=== PATIENT | female | born 1975 | race Caucasian/White ===

== ENCOUNTER 2016-12-23 11:17 | Emergency (ER) | payer MEDICAID ==
[~2016-12-23] VITALS: Ht 160 cm; Wt 83.0 kg
[~2016-12-23 11:17] MED LIST: BACT800T5 PO; HYDR-3533 PO; HYDR-3534 PO
[2016-12-23 11:21] VITALS: BP 147/81; PULSE 112; RESP 16; TEMP 98.7; O2SAT 98
[2016-12-23] MEDS ORDERED: MOBI7.5T PO (11:33)
--- NOTE | 2016-12-23 12:00 | PD ---
HPI Chief Complaint: Flank/Kidney Pain Time Seen by Provider: 11:29 Travel History International Travel<30 days: No Contact w/Intl Traveler<30days: No Traveled to known affect area: No History of Present Illness HPI The patient was seen and examined in the presence of the nurse. This patient complains of left flank pain. Duration 3 days. Severity is moderate. No injury or fever or urinary complaints. She reports history of kidney stones and thinks that may be the problem. She says that she visualized a kidney stone in the toilet 3 days ago that she passed. No alleviating factors. PFSH Past Medical History Hx Anticoagulant Therapy: No Asthma: Yes Anxiety: Yes Cancer: No Cardiovascular Problems: No Chemotherapy: No Cerebrovascular Accident: No Diabetes: No Diminished Hearing: No Endocrine: No Genitourinary: Yes (FREQUENT UTI KIDNEY STONES) Immune Disorder: No Implanted Vascular Access Dvce: No Kidney Stones: Yes Musculoskeletal: Yes (CHRONIC BACK PAIN) Psychiatric: No Reproductive: Yes (FIBROIDS, OVARIAN CYSTS) Respiratory: No Immunizations Current: Yes Ulcer: Yes PNEUMOCCOCAL Vaccine (Year): 2009 ?: Not LMP: 12/10/16 : 13 Para: 5 : 5 Ovarian Cysts: Yes Dilation and Curettage (D&C): Yes Tubal Ligation: Yes Past Surgical History Genitourinary Surgery: No Gynecologic Surgery: Yes (TUBAL LIGATION ABLATION) Hysterectomy: No Other Surgery: Yes (Bilateral tubal ligation) Social History Alcohol Use: No Tobacco Use: Yes (1/2PPD) Substance Use: No Allergies-Medications (Allergen,Severity, Reaction): Coded Allergies: Ciprofloxacin (Verified Allergy, Severe, ONLY IV CIPRO CAUSES HIVES, ) Codeine (Verified Allergy, Severe, swelling, 12/23/16) pt states does not have a allergy to this medication 12/05/15 Keflex (Verified Allergy, Severe, vomiting, 12/23/16) Penicillin (Verified Allergy, Severe, swelling, 12/23/16) Reported Meds & Prescriptions Reported Meds & Active Scripts Active Reported Mobic (Meloxicam) 7.5 Mg Tab Unknown Dose PO DAILY Review of Systems General / Constitutional: No: Fever Eyes: No: Visual changes HENT: No: Headaches Cardiovascular: No: Chest Pain or Discomfort Respiratory: No: Shortness of Breath Gastrointestinal: No: Abdominal Pain Genitourinary: Positive: Flank Pain, No: Dysuria Musculoskeletal: Positive: Pain Skin: No Rash Neurologic: No: Weakness Psychiatric: No: Depression Endocrine: No: Polydipsia Hematologic/Lymphatic: No: Easy Bruising Physical Exam Narrative GENERAL: Well-nourished, well-developed patient with left low back pain. SKIN: Focused skin assessment reveals no rash and nodules. Skin is Warm and dry. HEAD: Atraumatic. Normocephalic. EYES: Pupils equal and round. No scleral icterus. No injection or drainage. ENT: No nasal bleeding or discharge. Mucous membranes pink and moist. NECK: Trachea midline. No JVD. CARDIOVASCULAR: Regular rate and rhythm. No murmur appreciated. RESPIRATORY: No accessory muscle use. Clear to auscultation. Breath sounds equal bilaterally. GASTROINTESTINAL: Abdomen soft, non-tender, nondistended. Hepatic and splenic margins not palpable. MUSCULOSKELETAL: No obvious deformities. No clubbing. No cyanosis. No edema. No midline tenderness. There is some left lumbar area tenderness. NEUROLOGICAL: Awake and alert. No obvious cranial nerve deficits. Motor grossly within normal limits. Normal speech. PSYCHIATRIC: Appropriate mood and affect; insight and judgment normal. Data Data Last Documented VS Vital Signs Date Time Temp Pulse Resp B/P Pulse Ox O2 Delivery O2 Flow Rate FiO2 12/23/16 11:21 98.7 112 16 147/[address] Abd/Pel W/O Iv Contrast (12/23/16 ) Urinalysis - C+S If Indicated (12/23/16 11:48) Urine Culture (12/23/16 11:45) Labs Laboratory Tests Test 12/23/16 11:45 Urine Collection Type CLEAN CATCH Urine Color YELLOW Urine Turbidity SLIGHTY CLOUDY Urine pH 5.5 Urine Specific [place] 1.017 Urine Protein TRACE mg/dL Urine Glucose (UA) NEG mg/dL Urine Ketones NEG mg/dL Urine Occult Blood MOD Urine Nitrite POS Urine Bilirubin NEG Urine Leukocyte Esterase LARGE Urine WBC 100-200 /hpf Urine WBC Clumps FEW Urine Squamous Epithelial > 8 /hpf Cells Urine Bacteria MANY /hpf Urine White Blood Cell Casts 0-2 /lpf Microscopic Urinalysis Comment CULTURE INDICATED MDM Medical Decision Making Medical Screen Exam Complete: Yes Emergency Medical Condition: Yes Medical Record Reviewed: Yes Differential Diagnosis Kidney stone, sciatica, lumbar strain Narrative Course I have reviewed the patient's electronic medical record. Patient was here in 2012 and 2013 with flank pain and had CT scans on both occasions which I have reviewed. They both showed bilateral nonobstructing stones Urinalysis shows 100-200 white cells with other inflammatory markers consistent with infection CT of abdomen and pelvis shows bilateral nonobstructing renal stones which are not likely to be causing her symptoms I prescribed her week of antibiotics and something for pain Recommend primary care follow-up Diagnosis Primary Impression: Pyelonephritis Additional Instructions: The patient was advised to follow up with their physician and return if they worsen. The patient was warned about potential sedation for the medications they will receive on prescription. Med/Other Pt SpecificInfo: Prescription(s) given Scripts Tramadol 50 Mg Tab50 Mg PO Q6H PRN (PAIN) #15 TAB Ref 0 Prov:David Sifuentes MD 12/23/16 Sulfamethoxazole-Trimethoprim (Bactrim DS)800-160 Mg Tab1 Tab PO BID #14 TAB Ref 0 Prov:David Sifuentes MD 12/23/16 Disposition: 01 DISCHARGE HOME Condition: Stable David Sifuentes MD Dec 23, 2016 12:00
[2016-12-23 12:01] LABS: GLUCOSE,URINE NEG (NEG); KETONE, URINE NEG (NEG); PH, URINE 5.5 (5.0-8.5)
[2016-12-23 12:02] LABS: BLOOD, URINE MOD (NEG); NITRITE,URINE POS (NEG)
[2016-12-23 12:21] LABS: METHOD OF COLLECTION CLEAN CATCH; URINE COLOR YELLOW (YELLW/STRAW)
[2016-12-23 12:22] LABS: WHITE BLOOD CELL CAST, URINE 0-2 /lpf
[2016-12-23 12:23] LABS: BACTERIA, URINE MANY /hpf; SQUAMOUS EPITHELIAL CELL URINE > 8 /hpf (0-5); WBC, URINE 100-200 /hpf (0-5)
[2016-12-23 12:24] LABS: COMMENT (UR) CULTURE INDICATED; CULTURE IF INDICATED CULTURE INDICATED
--- NOTE | 2016-12-23 12:42 | RADHPO ---
EXAM DATE/TIME: 12/23/2016 12:22 [facility] COMPARISON: CT ABDOMEN & PELVIS W CONTRAST, October 30, 2015, 12:53. INDICATIONS : Left flank pain and an episode of gross hematuria. ORAL CONTRAST: No oral contrast ingested. RADIATION DOSE: 23.27 CTDIvol (mGy) MEDICAL HISTORY : Renal calculi. SURGICAL HISTORY : Tubal ligation. ENCOUNTER: Initial ACUITY: 2 days PAIN SCALE: 7/10 LOCATION: Left flank TECHNIQUE: Volumetric scanning of the abdomen and pelvis was performed. Using automated exposure control and ad justment of the mA and/or kV according to patient size, radiation dose was kept as low as reasonably achievable to obtain optimal diagnostic quality images. FINDINGS: Abdomen CT: There are multiple stones in both kidneys. In the right kidney there are 3 separate tiny stones the l argest measures 3 mm in size without hydronephrosis. In the left kidney there is an approximate 6 mm stone in the lower pole 2-3 mm stone in the upper pole. There are also 2 areas of milk of calcium dep osits in the left kidney within the cysts identified previously. There is no hydronephrosis or ureter al stone.The liver, spleen, pancreas, adrenals are unremarkable. There is no evidence for any appreci able pathological adenopathy, free fluid, or bowel obstruction. Pelvic CT: There is no evidence for mass, abscess formation, or any significant adenopathy within the pelvis. Th ere is a small almost 1 cm bone island in the anterior column acetabulum on the right with hypertroph ic changes of the symphysis pubi. IMPRESSION: Bilateral nonobstructing renal stones. Rhonda Thibodeaux MD on December 23, 2016 at 12:36 Board Certified Radiologist. This report was verified electronically.
[2016-12-23] MEDS ORDERED: TRAM50TA PO (13:00)
[2016-12-23] MEDS ORDERED: BACT800T5 PO (13:00)
== END 2016-12-23 13:11 | disposition home or self-care (01) ==
LOC: PHED 11:17
DX: N12 Tubulo-interstitial nephritis, not specified as acute or chronic (principal); D25.9 Leiomyoma of uterus, unspecified; F17.210 Nicotine dependence, cigarettes, uncomplicated; Z87.442 Personal history of urinary calculi
CPT/HCPCS: 74176; 81001; 87077; 87086; 87186

== ENCOUNTER 2017-12-15 10:11 | Emergency (ER) | payer MEDICAID ==
[~2017-12-15] VITALS: Ht 162.6 cm; Wt 77.9 kg
[~2017-12-15 10:11] MED LIST changes: -HYDR-3533 PO; -HYDR-3534 PO; +MOBI7.5T PO; +TRAM50TA PO
[2017-12-15 10:22] VITALS: BP 138/69; PULSE 86; RESP 16; TEMP 98.6; O2SAT 97
[2017-12-15] MEDS ORDERED: SODIUM CHLOR 0.9% 1000 ML INJ 1,000 ML IV SCH (11:34)
[2017-12-15] MEDS ORDERED: SODIUM CHLORIDE 0.9% FLUSH 10 ML FLUSH IV FLUSH PRN (11:45)
[2017-12-15 12:05] VITALS: RESP 20; O2SAT 98
[2017-12-15] MEDS ORDERED: FAMOTIDINE 20 MG TAB PO ONE (12:15)
[2017-12-15] MEDS ORDERED: LIDOCAINE VISCOUS 2% SOLN 15 ML UDC PO ONE (12:15)
[2017-12-15] MEDS ORDERED: ALUMINUM/MAGNESIUM/SIMETH 30 ML CUP PO ONE (12:15)
[2017-12-15] MEDS ORDERED: ONDANSETRON HCL 4 MG/2 ML VIAL IV PUSH ONE (12:15)
--- NOTE | 2017-12-15 12:19 | PD ---
HPI Chief Complaint: GI Complaint Time Seen by Provider: 12:03 Travel History International Travel<30 days: No Contact w/Intl Traveler<30days: No Traveled to known affect area: No History of Present Illness HPI Patient is a 42-year-old female with history of "gi issues" presents to emergency room with complaints of mild to moderate abdominal pain located in her left upper abdomen with nausea and vomiting. Patient reports that she had a little bit of coffee this morning, reports that shortly thereafter she began to feel nauseous and had multiple episodes of vomiting. Patient noted that she had flecks of blood in her mucus. Patient reports that she has had similar symptoms in the past, reports that she was supposed to follow-up with a bilingual teacher but could not as she did not have a car to get there. Reports that that was a long time ago and she has been fine since then, so she decided not follow-up with a bilingual teacher. Patient denies any recent illnesses, denies eating anything that could be irritating to her stomach. Reports no sick contacts. Denies diarrhea/constipation. Patient with no fever or chills, no chest pain or shortness of breath. Patient reports that she has no medical problems at this time other than history of discectomy PFSH Past Medical History Hx Anticoagulant Therapy: No Asthma: Yes Anxiety: Yes Cancer: No Cardiovascular Problems: No Chemotherapy: No Cerebrovascular Accident: No Diabetes: No Diminished Hearing: No Endocrine: No Genitourinary: Yes (FREQUENT UTI KIDNEY STONES) Immune Disorder: No Implanted Vascular Access Dvce: No Kidney Stones: Yes Musculoskeletal: Yes (CHRONIC BACK PAIN) Psychiatric: No Reproductive: Yes (FIBROIDS, OVARIAN CYSTS) Respiratory: No Immunizations Current: Yes Ulcer: Yes Tetanus Vaccination: < 5 Years Influenza Vaccination: No PNEUMOCCOCAL Vaccine (Year): 2009 ?: Not LMP: 2 weeks ago : 13 Para: 5 : 5 Ovarian Cysts: Yes Dilation and Curettage (D&C): Yes Tubal Ligation: Yes Past Surgical History Genitourinary Surgery: No Gynecologic Surgery: Yes (TUBAL LIGATION ABLATION) Hysterectomy: No Other Surgery: Yes (Bilateral tubal ligation) Social History Alcohol Use: No Tobacco Use: Yes (1/2PPD) Substance Use: No Allergies-Medications (Allergen,Severity, Reaction): Coded Allergies: cephalexin (Unverified Allergy, Severe, vomiting, 12/15/17) ciprofloxacin (Unverified Allergy, Severe, ONLY IV CIPRO CAUSES HIVES, 12/15) codeine (Unverified Allergy, Severe, swelling, 12/15/17) pt states does not have a allergy to this medication 12/05/15 penicillin G (Unverified Allergy, Severe, swelling, 12/15/17) Reported Meds & Prescriptions Reported Meds & Active Scripts Active No Active Prescriptions or Reported Medications Review of Systems General / Constitutional: No: Fever Eyes: No: Visual changes HENT: No: Headaches Cardiovascular: No: Chest Pain or Discomfort, Palpitations, Irregular Rhythm Respiratory: No: Cough, Shortness of Breath Gastrointestinal: Positive: Nausea, Vomiting, Abdominal Pain, Loss of Appetite , No: Diarrhea, Constipation Genitourinary: No: Dysuria Musculoskeletal: No: Pain Skin: No Rash Neurologic: No: Weakness Psychiatric: No: Depression Endocrine: No: Polydipsia Hematologic/Lymphatic: No: Easy Bruising Physical Exam Narrative GENERAL: mild distress SKIN: Focused skin assessment warm/dry. HEAD: Atraumatic. Normocephalic. EYES: Pupils equal and round. No scleral icterus. No injection or drainage. ENT: No nasal bleeding or discharge. Mucous membranes pink and moist. NECK: Trachea midline. No JVD. CARDIOVASCULAR: Regular rate and rhythm. No murmur appreciated. RESPIRATORY: No accessory muscle use. Clear to auscultation. Breath sounds equal bilaterally. GASTROINTESTINAL: Abdomen soft, tender to the left upper abdomen, no rebound or guarding on exam, nondistended. Hepatic and splenic margins not palpable. MUSCULOSKELETAL: No obvious deformities. No clubbing. No cyanosis. No edema. NEUROLOGICAL: Awake and alert. No obvious cranial nerve deficits. Motor grossly within normal limits. Normal speech. PSYCHIATRIC: Appropriate mood and affect; insight and judgment normal. Data Data Last Documented VS Vital Signs Date Time Temp Pulse Resp B/P (MAP) Pulse Ox O2 Delivery O2 Flow Rate FiO2 12/15/17 13:36 61 16 114/55 (74) 96 Room Air 12/15/17 10:22 98.6 Orders Orders Complete Blood Count With Diff (12/15/17 11:34) Comprehensive Metabolic Panel (12/15/17 11:34) Lipase (12/15/17 11:34) Prothrombin Time / Inr (Pt) (12/15/17 11:34) Urinalysis - C+S If Indicated (12/15/17 11:34) Iv Access Insert/Monitor (12/15/17 11:34) Ecg Monitoring (12/15/17 11:34) Oximetry (12/15/17 11:34) NPO (12/15/17 11:34) Sodium Chlor 0.9% 1000 Ml Inj (Ns 1000 M (12/15/17 11:34) Sodium Chloride 0.9% Flush (Ns Flush) (12/15/17 11:45) Ed Urine Pregnancytest Poc (12/15/17 11:34) Act Partial Throm Time (Ptt) (12/15/17 11:34) Ct Abd/Pel W/O Iv Contrast (12/15/17 12:15) Al-Mag Hy-Si 40-40-4 Mg/Ml Liq (Mag-Al P (12/15/17 12:15) Lidocaine 2% Viscous (Xylocaine 2% Visco (12/15/17 12:15) Ondansetron Inj (Zofran Inj) (12/15/17 12:15) Famotidine (Pepcid) (12/15/17 12:15) Urine Culture (12/15/17 12:37) Ceftriaxone Inj (Rocephin Inj) (12/15/17 13:45) Nitrofurantoin Monohyd Macrocr (Macrobid (12/15/17 14:30) Labs Laboratory Tests Test 12/15/17 12:05 12/15/17 12:37 12/15/17 13:08 White Blood Count 22.7 TH/MM3 Red Blood Count 4.65 MIL/MM3 Hemoglobin 14.5 GM/DL Hematocrit 42.8 % Mean Corpuscular Volume 92.0 FL Mean Corpuscular Hemoglobin 31.2 PG Mean Corpuscular Hemoglobin Concent 33.9 % Red Cell Distribution Width 13.1 % Platelet Count 214 TH/MM3 Mean Platelet Volume 9.6 FL Neutrophils (%) (Auto) 82.4 % Lymphocytes (%) (Auto) 10.8 % Monocytes (%) (Auto) 3.8 % Eosinophils (%) (Auto) 0.5 % Basophils (%) (Auto) 2.5 % Neutrophils # (Auto) 18.6 TH/MM3 Lymphocytes # (Auto) 2.5 TH/MM3 Monocytes # (Auto) 0.9 TH/MM3 Eosinophils # (Auto) 0.1 TH/MM3 Basophils # (Auto) 0.6 TH/MM3 CBC Comment DIFF FINAL Differential Comment Urine Color YELLOW Urine Turbidity CLEAR Urine pH 6.0 Urine Specific [place] 1.020 Urine Protein NEG mg/dL Urine Glucose (UA) NEG mg/dL Urine Ketones NEG mg/dL Urine Occult Blood NEG Urine Nitrite POS Urine Bilirubin NEG Urine Urobilinogen 0.2 MG/DL Urine Leukocyte Esterase TRACE Urine RBC 0-3 /hpf Urine WBC 15-19 /hpf Urine Squamous Epithelial Cells 0-5 /hpf Urine Bacteria FEW /hpf Urine Mucus FEW /lpf Microscopic Urinalysis Comment CULTURE INDICATED Prothrombin Time 10.0 SEC Prothromb Time International Ratio 1.0 RATIO Activated Partial Thromboplast Time 26.5 SEC Blood Urea Nitrogen 8 MG/DL Creatinine 0.65 MG/DL Random Glucose 81 MG/DL Total Protein 6.9 GM/DL Albumin 3.1 GM/DL Calcium Level 8.3 MG/DL Alkaline Phosphatase 82 U/L Aspartate Amino Transf (AST/SGOT) 18 U/L Alanine Aminotransferase (ALT/SGPT) 28 U/L Total Bilirubin 0.4 MG/DL Sodium Level 139 MEQ/L Potassium Level 4.1 MEQ/L Chloride Level 110 MEQ/L Carbon Dioxide Level 23.1 MEQ/L Anion Gap 6 MEQ/L Estimat Glomerular Filtration Rate 100 ML/MIN Lipase 93 U/L MDM Medical Decision Making Medical Screen Exam Complete: Yes Emergency Medical Condition: Yes Medical Record Reviewed: Yes Interpretation(s) Vital Signs Date Time Temp Pulse Resp B/P (MAP) Pulse Ox O2 Delivery O2 Flow Rate FiO2 12/15/17 12:05 20 98 Room Air 12/15/17 10:22 98.6 86 16 138/69 (92) 97 Differential Diagnosis Gastritis, gastroenteritis, gastric ulcer, electrolyte abnormality Narrative Course Patient is a 42-year-old female who presents to emergency room with complaints of left upper abdominal pain with associated nausea and vomiting which started this morning. Reports history of "GI" issues in the past. During the course of the patients emergency department visit, the patients history, examination, and differential diagnosis were reviewed with the patient. The patient was placed on a court monitor with oximetry and frequent blood pressure monitoring. The patient had an IV access obtained and blood work sent for analysis. The patient was initially provided IVF, gi cocktail and oral pepcid The patients laboratory studies were reviewed and remarkable for: Laboratory Tests Test 12/15/17 12:05 12/15/17 12:37 12/15/17 13:08 White Blood Count 22.7 TH/MM3 (4.0-11.0) Red Blood Count 4.65 MIL/MM3 (4.00-5.30) Hemoglobin 14.5 GM/DL (11.6-15.3) Hematocrit 42.8 % (35.0-46.0) Mean Corpuscular Volume 92.0 FL (80.0-100.0) Mean Corpuscular Hemoglobin 31.2 PG (27.0-34.0) Mean Corpuscular Hemoglobin Concent 33.9 % (32.0-36.0) Red Cell Distribution Width 13.1 % (11.6-17.2) Platelet Count 214 TH/MM3 (150-450) Mean Platelet Volume 9.6 FL (7.0-11.0) Neutrophils (%) (Auto) 82.4 % (16.0-70.0) Lymphocytes (%) (Auto) 10.8 % (9.0-44.0) Monocytes (%) (Auto) 3.8 % (0.0-8.0) Eosinophils (%) (Auto) 0.5 % (0.0-4.0) Basophils (%) (Auto) 2.5 % (0.0-2.0) Neutrophils # (Auto) 18.6 TH/MM3 (1.8-7.7) Lymphocytes # (Auto) 2.5 TH/MM3 (1.0-4.8) Monocytes # (Auto) 0.9 TH/MM3 (0-0.9) Eosinophils # (Auto) 0.1 TH/MM3 (0-0.4) Basophils # (Auto) 0.6 TH/MM3 (0-0.2) CBC Comment DIFF FINAL Differential Comment Urine Color YELLOW (YELLW/STRAW) Urine Turbidity CLEAR (CLEAR) Urine pH 6.0 (5.0-8.5) Urine Specific [place] 1.020 (1.002-1.035) Urine Protein NEG mg/dL (NEG-TRACE) Urine Glucose (UA) NEG mg/dL (NEG) Urine Ketones NEG mg/dL (NEG) Urine Occult Blood NEG (NEG) Urine Nitrite POS (NEG) Urine Bilirubin NEG (NEG) Urine Urobilinogen 0.2 MG/DL (LESS THAN Urine Leukocyte Esterase TRACE (NEG) Urine RBC 0-3 /hpf (0-3) Urine WBC 15-19 /hpf (0-5) Urine Squamous Epithelial Cells 0-5 /hpf (0-5) Urine Bacteria FEW /hpf (NONE) Urine Mucus FEW /lpf (OCC) Microscopic Urinalysis Comment CULTURE INDICATED Prothrombin Time 10.0 SEC (9.8-11.6) Prothromb Time International Ratio 1.0 RATIO Activated Partial Thromboplast Time 26.5 SEC (24.3-30.1) Blood Urea Nitrogen 8 MG/DL (7-18) Creatinine 0.65 MG/DL (0.50-1.00) Random Glucose 81 MG/DL (74-106) Total Protein 6.9 GM/DL (6.4-8.2) Albumin 3.1 GM/DL (3.4-5.0) Calcium Level 8.3 MG/DL (8.5-10.1) Alkaline Phosphatase 82 U/L (45-117) Aspartate Amino Transf (AST/SGOT) 18 U/L (15-37) Alanine Aminotransferase (ALT/SGPT) 28 U/L (10-53) Total Bilirubin 0.4 MG/DL (0.2-1.0) Sodium Level 139 MEQ/L (136-145) Potassium Level 4.1 MEQ/L (3.5-5.1) Chloride Level 110 MEQ/L (98-107) Carbon Dioxide Level 23.1 MEQ/L (21.0-32.0) Anion Gap 6 MEQ/L (5-15) Estimat Glomerular Filtration Rate 100 ML/MIN (>89) Lipase 93 U/L (73-393) Radiology studies were reviewed and remarkable for Last Impressions Abdomen/Pelvis CT 12/15/17 1215 Signed Impressions: Service Date/Time: Friday, December 15, 2017 13:09 - CONCLUSION: 1. Multiple calcified nonobstructing bilateral renal calculi. 2. Stable bilateral renal cysts. 3. Hepatomegaly. 4. Stable low-density lesions within the left lobe of liver measuring 17 and 7 mm. 5. Stable left adrenal nodule measuring 2.1 x 1.5 cm consistent with probable adrenal adenoma. 6. Scattered bibasilar atelectasis. Tramaine Thomas MD Patient re-evaluated, reports that she is feeling much better. I reviewed all labs and studies with patient in detail including all incidental findings. Reports that her pcp has been following the liver lesions, she will follow up with the adrenal adenoma. A copy of her report was given to her as she will need to follow up on the incidentaloma's. Patient' does have a leukocytosis and uti -plan to treat with Macrobid. Patient will follow with all cultures and today. Diagnosis Primary Impression: UTI (urinary tract infection) Qualified Codes: N30.00 - Acute cystitis without hematuria Additional Impressions: Abdominal pain Qualified Codes: R10.12 - Left upper quadrant pain Nausea & vomiting Qualified Codes: R11.2 - Nausea with vomiting, unspecified Gastritis Qualified Codes: K29.00 - Acute gastritis without bleeding Adrenal adenoma Qualified Codes: D35.00 - Benign neoplasm of unspecified adrenal gland Liver lesion Patient Instructions: General Instructions Departure Forms: Tests/Procedures, Work Release Enter return to work date: Dec 18, 2017 Additional Instructions: Please provide patient with a copy of their lab work and studies at discharge* * Please follow up with your primary care doctor in 2-3 days Return to the ER if symptoms worsen or progress Return to the ER as needed Please take all antibiotics as prescribed Please follow-up with all cultures from today Please follow-up with ultrasound findings reviewed with you today. Please follow-up with bilingual teacher as soon as possible Med/Other Pt SpecificInfo: Prescription(s) given Scripts Ondansetron (Zofran) 4 Mg Tab 4 MG PO Q6HR Y for NAUSEA OR VOMITING, #20 TAB 0 Refills Prov: Maira Roberts DO 12/15/17 Pantoprazole (Protonix) 40 Mg Tab 40 MG PO DAILY for Reflux, #30 TAB 0 Refills Prov: Maira Roberts DO 12/15/17 Nitrofurantoin Monohydrate Macrocrystals (Macrobid) 100 Mg Cap 100 MG PO BID for Infection for 10 Days, #20 CAP 0 Refills Prov: Maira Roberts DO 12/15/17 Disposition: 01 DISCHARGE HOME Condition: Stable Maira Roberts DO Dec 15, 2017 12:19
[2017-12-15 12:24] LABS: AUTOMATED NEUTROPHIL # 18.6 TH/MM3 (1.8-7.7); BASOPHIL # 0.6 TH/MM3 (0-0.2); BASOPHIL % 2.5 % (0.0-2.0); EOSINOPHIL # 0.1 TH/MM3 (0-0.4); EOSINOPHIL % 0.5 % (0.0-4.0); HEMATOCRIT 42.8 % (35.0-46.0); HEMOGLOBIN 14.5 GM/DL (11.6-15.3); LYMPH % 10.8 % (9.0-44.0); LYMPHOCYTE # 2.5 TH/MM3 (1.0-4.8); MEAN CORPUSCULAR HEMOGLOBIN 31.2 PG (27.0-34.0); MEAN CORPUSCULAR HGB CONC 33.9 % (32.0-36.0); MEAN PLATELET VOLUME 9.6 FL (7.0-11.0); MONO % 3.8 % (0.0-8.0); MONOCYTE # 0.9 TH/MM3 (0-0.9); NEUT % 82.4 % (16.0-70.0); PLATELET COUNT 214 TH/MM3 (150-450); RED BLOOD COUNT 4.65 MIL/MM3 (4.00-5.30); RED CELL DISTRIBUTION WIDTH 13.1 % (11.6-17.2); WHITE BLOOD COUNT 22.7 TH/MM3 (4.0-11.0)
[2017-12-15 12:47] LABS: BILIRUBIN, URINE NEG (NEG); BLOOD, URINE NEG (NEG); GLUCOSE,URINE NEG (NEG); KETONE, URINE NEG (NEG); NITRITE,URINE POS (NEG); URINE COLOR YELLOW (YELLW/STRAW); URINE LEUKOCYTE ESTERASE TRACE (NEG)
[2017-12-15 12:59] LABS: MUCUS URINE FEW /lpf (OCC)
[2017-12-15 13:00] LABS: BACTERIA, URINE FEW /hpf; RBC, URINE 0-3 /hpf (0-3); SQUAMOUS EPITHELIAL CELL URINE 0-5 /hpf (0-5); WBC, URINE 15-19 /hpf (0-5)
[2017-12-15 13:29] LABS: CHLORIDE 110 MEQ/L (98-107); SODIUM (NA) 139 MEQ/L (136-145)
[2017-12-15 13:34] LABS: CALCIUM 8.3 MG/DL (8.5-10.1)
[2017-12-15 13:35] LABS: ALBUMIN 3.1 GM/DL (3.4-5.0); BICARBONATE 23.1 MEQ/L (21.0-32.0); BLOOD UREA NITROGEN 8 MG/DL (7-18); GLUCOSE,RANDOM 81 MG/DL (74-106)
[2017-12-15 13:36] VITALS: BP 114/55; PULSE 61; RESP 16; O2SAT 96
[2017-12-15 13:37] LABS: ALT (GPT) 28 U/L (10-53); AST (GOT) 18 U/L (15-37)
[2017-12-15 13:38] LABS: CREATININE 0.65 MG/DL (0.50-1.00); GLOMERULAR FILTRATION RATE 100 ML/MIN (>89)
[2017-12-15 13:39] LABS: TOTAL BILIRUBIN ADULT 0.4 MG/DL (0.2-1.0); TOTAL PROTEIN 6.9 GM/DL (6.4-8.2)
[2017-12-15 13:40] LABS: ALKALINE PHOSPHATASE 82 U/L (45-117)
--- NOTE | 2017-12-15 13:42 | RADRPT ---
EXAM DATE/TIME: 12/15/2017 13:09 [facility] COMPARISON: CT ABDOMEN & PELVIS W CONTRAST, October 30, 2015, 12:53. CT ABDOMEN & PELVIS W/O CONTRAST, December, 12:22. INDICATIONS : Lower abdominal cramping, nausea, and vomiting blood. ORAL CONTRAST: No oral contrast ingested. RADIATION DOSE: 18.09 CTDIvol (mGy) MEDICAL HISTORY : Renal calculi. SURGICAL HISTORY : Tubal ligation. Fusion, cervical. ENCOUNTER: Initial ACUITY: 1 day PAIN SCALE: 6/10 LOCATION: lower quadrant TECHNIQUE: Volumetric scanning of the abdomen and pelvis was performed. Using automated exposure control and ad justment of the mA and/or kV according to patient size, radiation dose was kept as low as reasonably achievable to obtain optimal diagnostic quality images. DICOM format image data is available electro nically for review and comparison. FINDINGS: LOWER LUNGS: Scattered atelectatic changes are noted within the lung bases. LIVER: Hepatomegaly is noted. There is stable low density lesions within the left lobe of the liver measurin g 17 and 7 mm. There is no dilation of the biliary tree. No calcified gallstones. SPLEEN: Normal size without lesion. PANCREAS: Within normal limits. KIDNEYS: Normal in size and shape. There is no hydronephrosis. Multiple calcified nonobstructing bilateral re nal calculi are noted with the largest on the left measuring 7 mm. Multiple bilateral renal cysts are noted. ADRENAL GLANDS: There is a stable left adrenal nodule which measures 2.1 x 1.5 cm consistent with probable adrenal ad enoma. The right adrenal gland is unremarkable. VASCULAR: There is no aortic aneurysm. BOWEL/MESENTERY: The stomach, small bowel, and colon demonstrate no acute abnormality. There is no free intraperitone al air or fluid. The appendix is normal. ABDOMINAL WALL: Within normal limits. RETROPERITONEUM: There is no lymphadenopathy. BLADDER: No wall thickening or mass. REPRODUCTIVE: Within normal limits. INGUINAL: There is no lymphadenopathy or hernia. MUSCULOSKELETAL: Within normal limits for patient age. CONCLUSION: 1. Multiple calcified nonobstructing bilateral renal calculi. 2. Stable bilateral renal cysts. 3. Hepatomegaly. 4. Stable low-density lesions within the left lobe of liver measuring 17 and 7 mm. 5. Stable left adrenal nodule measuring 2.1 x 1.5 cm consistent with probable adrenal adenoma. 6. Scattered bibasilar atelectasis. Tramaine Thomas MD on December 15, 2017 at 13:31 Board Certified Radiologist. This report was verified electronically.
[2017-12-15] MEDS ORDERED: cefTRIAXone INJ 1,000 MG in SODIUM CHLORIDE 0.9% INJ 100 ML IV ONE (13:45)
[2017-12-15] MEDS ORDERED: NITROFURANTOIN MONOHYD MACROCR 100 MG CAP PO ONE (14:30)
[2017-12-15] MEDS ORDERED: PROT40TA PO (14:35)
[2017-12-15] MEDS ORDERED: MACR100C2 PO (14:35)
[2017-12-15] MEDS ORDERED: ZOFR4TAB PO (14:35)
[2017-12-15 15:01] VITALS: BP 110/58
== END 2017-12-15 15:01 | disposition home or self-care (01) ==
LOC: PHED 10:11
DX: N30.00 Acute cystitis without hematuria (principal); B96.20 Unspecified Escherichia coli [E. coli] as the cause of diseases classified elsewhere; K29.00 Acute gastritis without bleeding; D35.02 Benign neoplasm of left adrenal gland; K76.9 Liver disease, unspecified; F41.9 Anxiety disorder, unspecified; G89.29 Other chronic pain; M54.9 Dorsalgia, unspecified; F17.200 Nicotine dependence, unspecified, uncomplicated
CPT/HCPCS: 74176; 80053; 81001; 83690; 84703; 85025; 85610; 85730; 87077; 87086; 87186; 96361; 96374; 99284; J2405; J7030

== ENCOUNTER 2018-02-09 23:35 | Emergency (ER) | payer MEDICAID ==
[~2018-02-09] VITALS: Ht 162.6 cm; Wt 76.2 kg
[~2018-02-09 23:35] MED LIST changes: -BACT800T5 PO; +MACR100C2 PO; -MOBI7.5T PO; +PROT40TA PO; -TRAM50TA PO; +ZOFR4TAB PO
[2018-02-09 23:39] VITALS: BP 149/70; PULSE 82; RESP 18; TEMP 98.4; O2SAT 100
--- NOTE | 2018-02-10 00:02 | PD ---
HPI Chief Complaint: Injury Time Seen by Provider: 23:45 Travel History International Travel<30 days: No Contact w/Intl Traveler<30days: No Traveled to known affect area: No History of Present Illness HPI Patient comes in complaining of right hand pain particularly to the knuckles of the ring finger and pinky finger on her right hand. This occurred after she got upset and impulsively ended up punching a wall. PFSH Past Medical History Hx Anticoagulant Therapy: No Asthma: Yes Anxiety: Yes Cancer: No Cardiovascular Problems: No Chemotherapy: No Cerebrovascular Accident: No Diabetes: No Diminished Hearing: No Endocrine: No Genitourinary: Yes (FREQUENT UTI KIDNEY STONES) Immune Disorder: No Implanted Vascular Access Dvce: No Kidney Stones: Yes Musculoskeletal: Yes (CHRONIC BACK PAIN) Psychiatric: No Reproductive: Yes (FIBROIDS, OVARIAN CYSTS) Respiratory: No Immunizations Current: Yes Ulcer: Yes Tetanus Vaccination: < 5 Years Influenza Vaccination: No PNEUMOCCOCAL Vaccine (Year): 2009 ?: Not : 13 Para: 5 : 5 Ovarian Cysts: Yes Dilation and Curettage (D&C): Yes Tubal Ligation: Yes Past Surgical History Genitourinary Surgery: No Gynecologic Surgery: Yes (TUBAL LIGATION ABLATION) Hysterectomy: No Other Surgery: Yes (Bilateral tubal ligation) Social History Alcohol Use: No Tobacco Use: Yes (1 PPD) Substance Use: No Allergies-Medications (Allergen,Severity, Reaction): Coded Allergies: cephalexin (Verified Allergy, Severe, vomiting, 02/09/18) ciprofloxacin (Verified Allergy, Severe, ONLY IV CIPRO CAUSES HIVES, ) codeine (Verified Allergy, Severe, swelling, 02/09/18) pt states does not have a allergy to this medication 12/05/15 penicillin G (Verified Allergy, Severe, swelling, 02/09/18) Reported Meds & Prescriptions Reported Meds & Active Scripts Active No Active Prescriptions or Reported Medications Review of Systems General / Constitutional: No: Fever Eyes: No: Visual changes HENT: No: Headaches Cardiovascular: No: Chest Pain or Discomfort Respiratory: No: Shortness of Breath Gastrointestinal: No: Abdominal Pain Genitourinary: No: Dysuria Musculoskeletal: Positive: Limited ROM Skin: No Rash Neurologic: No: Weakness Psychiatric: No: Depression Endocrine: No: Polydipsia Hematologic/Lymphatic: No: Easy Bruising Physical Exam Narrative GENERAL: SKIN: Warm and dry. HEAD: Atraumatic. Normocephalic. EYES: Pupils equal and round. No scleral icterus. No injection or drainage. ENT: No nasal bleeding or discharge. Mucous membranes pink and moist. NECK: Trachea midline. No JVD. CARDIOVASCULAR: Regular rate and rhythm. RESPIRATORY: No accessory muscle use. Clear to auscultation. Breath sounds equal bilaterally. GASTROINTESTINAL: Abdomen soft, non-tender, nondistended. MUSCULOSKELETAL: Extremities without clubbing, cyanosis, or edema. No obvious deformities. However the patient's fourth MCP appears slightly deformed and flattened, there is some edema over the fifth MCP as well the patient has strong radial and ulnar pulses as well as distal good capillary refill time less than 3 seconds. NEUROLOGICAL: Awake and alert. No obvious cranial nerve deficits. Motor grossly within normal limits. Five out of 5 muscle strength in the arms and legs. Normal speech. PSYCHIATRIC: Appropriate mood and affect; insight and judgment normal. Data Data Last Documented VS Vital Signs Date Time Temp Pulse Resp B/P (MAP) Pulse Ox O2 Delivery O2 Flow Rate FiO2 02/09/18 23:39 98.4 82 18 149/70 (96) 100 Orders Orders Hand, Limited (2vws) (02/09/18 ) [facility] Medical Decision Making Medical Screen Exam Complete: Yes Emergency Medical Condition: Yes Medical Record Reviewed: Yes Differential Diagnosis Hand fracture versus dislocation versus subluxation Narrative Course X-rays negative for any fractures, dislocations or subluxation Diagnosis Primary Impression: Right hand contusion Patient Instructions: Contusion in Adults (ED), General Instructions Scripts Tramadol (Ultram) 50 Mg Tab 50 MG PO Q8H Y for PAIN, #12 TAB 0 Refills Prov: Sorin Arriaga MD 02/10/18 Disposition: 01 DISCHARGE HOME Condition: Stable Sorin Arriaga MD Feb 10, 2018 00:02
--- NOTE | 2018-02-10 00:09 | RADRPT ---
EXAM DATE: 02/10/2018 12:06 AM EDT AGE/SEX: 42 years / Female INDICATIONS: Pain in right hand, 3rd, 4th, and 5th metacarpals after punching a wall. Unable to mov e 3rd, 4th, and 5th digits. CLINICAL DATA: This is the patient's initial encounter. Patient reports that signs and symptoms have been present for 1 day and indicates a pain score of 10/10. MEDICAL/SURGICAL HISTORY: None. None. COMPARISON: No prior [facility] exams available for comparison. FINDINGS: Bony structures are intact and in normal alignment. Osseous density is normal. Soft tissues are unre markable. No radiopaque foreign bodies seen. CONCLUSION: Unremarkable exam for patient's age. No acute fracture or joint dislocation. Electronically signed by: Jay Alegria MD 02/10/2018 12:08 AM EDT
[2018-02-10] MEDS ORDERED: TRAM50 PO (00:11)
== END 2018-02-10 00:28 | disposition home or self-care (01) ==
LOC: PHED 23:35
DX: S60.221A Contusion of right hand, initial encounter (principal); W22.09XA Striking against other stationary object, initial encounter; J45.909 Unspecified asthma, uncomplicated; F41.9 Anxiety disorder, unspecified; G89.29 Other chronic pain; M54.9 Dorsalgia, unspecified; F17.200 Nicotine dependence, unspecified, uncomplicated
CPT/HCPCS: 73120; 99283